=== PATIENT | male | born 1975 | race Caucasian/White ===

== ENCOUNTER 2020-01-03 16:31 | Emergency (ER) | payer OTHER ==
--- NOTE | 2020-01-03 18:28 | ER Document Report ---
ED Medical Screen (RME) - General Chief Complaint: Wrist Injury Stated Complaint: FALL - LEFT WRIST INJURY Time Seen by Provider: 01/03/20 17:54 Mode of Arrival: Ambulatory Information source: Patient Notes: HPI; 44-year-old male presents to the emergency room complaining of left wrist pain. States he was moving boxes at work when he lost his balance falling backward with his arm outstretched. Denies any previous trauma or injury to his wrist. Patient is right-handed. No medications for pain. PE: Alert and oriented x3. Lungs: Clear to auscultation without rales, rhonchi, wheezes. Heart: Regular rate rhythm without murmurs rubs or gallops. Positive left radial pulse. Capillary refill less than 3 seconds. Moderate swelling to the distal left wrist is noted. With obvious deformity noted. I have greeted and performed a rapid initial assessment of this patient. A comprehensive ED assessment and evaluation of the patient, analysis of test results and completion of the medical decision making process will be conducted by additional ED providers. I have specifically instructed the patient or family members with the patient to immediately return to any nursing staff rose uld anything change in the patient's condition or with their chief complaint. TRAVEL OUTSIDE OF THE [place] IN LAST 30 DAYS: No - Related Data Allergies/Adverse Reactions: Penicillins Adverse Reaction (Verified 05/09/16 14:02) Sulfa (Sulfonamide Antibiotics) Adverse Reaction (Verified 05/09/16 14:02) Past Medical History - Social History Chew tobacco use (# tins/day): No Frequency of alcohol use: Occasional Drug Abuse: None Physical Exam - Vital signs Vitals: Temp Pulse Resp BP Pulse Ox 98.3 F 78 16 122/81 100 01/03/20 17:09 01/03/20 17:09 01/03/20 17:09 01/03/20 17:09 01/03/20 17:09 Course - Vital Signs Vital signs: Temp Pulse Resp BP Pulse Ox 98.3 F 78 16 122/81 100 01/03/20 17:55 01/03/20 17:09 01/03/20 17:09 01/03/20 17:09 01/03/20 17:09
--- NOTE | 2020-01-03 18:36 | RADIOLOGY REPORT (SQ) ---
EXAM DESCRIPTION: WRIST LEFT 3 VIEWS IMAGES COMPLETED DATE/TIME: 01/03/2020 6:24 pm REASON FOR STUDY: injury COMPARISON: None. NUMBER OF VIEWS: Three views. TECHNIQUE: AP, lateral, and oblique radiographic images acquired of the left wrist. LIMITATIONS: None. FINDINGS: MINERALIZATION: Normal. BONES: Nondisplaced fracture of the distal radius. SOFT TISSUES: No soft tissue swelling. No foreign body. OTHER: No other significant finding. IMPRESSION: Nondisplaced fracture of the distal radius. TECHNICAL DOCUMENTATION: JOB ID: [id number] 2010 [employer]- All Rights Reserved Reading location - IP/workstation name: [email or web address]
--- NOTE | 2020-01-03 20:35 | ER Document Report ---
ED Hand/Wrist Injury - General Chief Complaint: Wrist Injury Stated Complaint: FALL - LEFT WRIST INJURY Time Seen by Provider: 01/03/20 17:54 Primary Care Provider: [facility] [Provider Group] - Follow up as needed Mode of Arrival: Ambulatory Notes: 44-year-old male with no reported past medical history presenting today with fall on outstretched hand occurred earlier today while he was at work moving boxes. Patient fell on outstretched hand of his left hand. Left wrist is swollen and tender. Patient has not taken any pain medication. Denies any numbness or tingling. Denies any additional symptoms at this time. Patient is right-hand dominant. TRAVEL OUTSIDE OF THE [place] IN LAST 30 DAYS: No - Related Data Allergies/Adverse Reactions: Penicillins Adverse Reaction (Verified 05/09/16 14:02) Sulfa (Sulfonamide Antibiotics) Adverse Reaction (Verified 05/09/16 14:02) Past Medical History - General Information source: Patient - Social History Smoking Status: Current Every Day Smoker Chew tobacco use (# tins/day): No Frequency of alcohol use: Occasional Drug Abuse: None Family History: Reviewed & Not Pertinent Patient has homicidal ideation: No Review of Systems - Review of Systems Constitutional: No symptoms reported EENT: No symptoms reported Cardiovascular: No symptoms reported Respiratory: No symptoms reported Gastrointestinal: No symptoms reported Genitourinary: No symptoms reported Male Genitourinary: No symptoms reported Musculoskeletal: See HPI Skin: See HPI Hematologic/Lymphatic: No symptoms reported Neurological/Psychological: No symptoms reported Physical Exam - Vital signs Vitals: Temp Pulse Resp BP Pulse Ox 98.3 F 78 16 122/81 100 01/03/20 17:09 01/03/20 17:09 01/03/20 17:09 01/03/20 17:09 01/03/20 17:09 Interpretation: Hypertensive - Notes Notes: Adult General: GENERAL: Alert, interacts well. No acute distress HEAD: Normocephalic, atraumatic EYES: Extraocular movements intact. ENT: Airway patent. Nares patent. NECK: Full range of motion. Supple. Trachea midline. No lymphadenopathy. LUNGS: Clear to auscultation bilaterally, no wheezes, rales, or rhonchi. No respiratory distress. Nontender chest wall. ABDOMEN: Nondistended. GENITOURINARY: Deferred EXTREMITIES: Moves all 4 extremities spontaneously. Left wrist is swollen along the medial aspect. States there is some mild tenderness to palpation along medial wrist. Good sensation to light touch. Capillary refill is less than 2 seconds. Good radial pulse. No cyanosis. BACK: Moves all extremities with full range of motion. NEUROLOGICAL: Alert and oriented x3. Normal speech. Strength 5/ 5 in all extremities. PSYCH: Normal affect, normal mood. SKIN: Warm, dry, normal turgor. No rashes or lesions noted. Course - Re-evaluation Re-evalutation: 01/03/20 20:38 Patient is actively walking around the room and anxious to leave as he is hungry. Patient's x-ray shows a non displaced distal radial fracture of the left radius. No additional fractures were noted. Patient is neurovascularly intact. He states that he is not having much pain at all. He has not had pain medicine since he has been in the ER. Patient states that he does not desire pain medications at this time. I will go ahead and splint the patient. I discussed that he will need to follow-up with an orthopedist as soon as possible. He has the referral information in the discharge paperwork. He may return to the emergency department if he has worsening symptoms or development of new symptoms. Patient acknowledges and verbalizes understanding of instructions and plan. All questions answered. Patient continues to deny wanting pain medications. Work note provided for the patient. - Vital Signs Vital signs: Temp Pulse Resp BP Pulse Ox 98.1 F 68 12 153/98 H 98 01/03/20 21:45 01/03/20 21:45 01/03/20 21:45 01/03/20 21:45 01/03/20 21:45 Procedures - Immobilization Left Wrist Pre-Proc Neuro Vasc Exam: Normal Immobilizer type: Sugar tong Post-Proc Neuro Vasc Exam: Normal Discharge - Discharge Clinical Impression: Fracture, radius, distal Qualifiers: Encounter type: initial encounter Fracture type: closed Fracture morphology: other fracture Laterality: left Qualified Code(s): S52.592A - Other fractures of lower end of left radius, initial encounter for closed fracture Condition: Stable Disposition: HOME, SELF-CARE Instructions: Fractured Radius ([facility]) Additional Instructions: You have a fracture of your distal radius. Please follow-up with an orthopedic provider as soon as possible. You may use Tylenol for pain relief. I also recommend you follow-up with your primary care provider. You may return to the emergency department for worsening symptoms or development of new symptoms. Forms: Return to Work Referrals: [facility] [Provider Group] - Follow up as needed
[2020-01-03 21:46] VITALS: BP 153/98
== END 2020-01-03 21:47 | disposition home or self-care (01) ==
LOC: ER 16:31
PROC: 2W3DX1Z Immobilization of Left Lower Arm using Splint (ICD-10-PCS; principal; 2020-01-03)
DX: S52.592A Other fractures of lower end of left radius, initial encounter for closed fracture (principal); M25.532 Pain in left wrist; M79.89 Other specified soft tissue disorders; W19.XXXA Unspecified fall, initial encounter; F17.200 Nicotine dependence, unspecified, uncomplicated
CPT/HCPCS: 99283